=== PATIENT | female | born 1935 ===

== ENCOUNTER 2016-08-03 10:56 | Emergency (ER) | payer MEDICARE, MEDICAID ==
[2016-08-03 10:59] VITALS: BP 145/77; PULSE 92; RESP 20; TEMP 98; O2SAT 96
[2016-08-03 11:01] VITALS: BMI 21.7
--- NOTE | 2016-08-03 11:56 | ED PDOC ---
HPI: Back Time Seen by Provider: 08/03/16 11:09 Chief Complaint (Nursing): Hip Pain Chief Complaint (Provider): Hip Pain History Per: Patient History/Exam Limitations: no limitations Onset/Duration Of Symptoms: Days Current Symptoms Are (Timing): Still Present Quality Of Discomfort: "Pain" Severity: Moderate Previous Symptoms: Back Pain Associated Symptoms: None Additional Complaint(s): Patient is a 81 year old female with a history of herniated lumbar disc, presents to ED accompanied by family for evaluation of right lower back and buttock pain. As per family patient takes Tramadol, Motrin, Naproxen and Oxycodone at home all with no relief, last dose of pain medication was last night, Motrin 6oomg PO no medication today. Patient notes that her only pain relief is from injections. Denies recent injury, chest pain, SOB or neck pain. Past Medical History Reviewed: Historical Data, Nursing Documentation, Vital Signs Vital Signs: Last Vital Signs Temp 98.0 F 08/03/16 10:58 Pulse 92 H 08/03/16 10:58 Resp 20 08/03/16 10:58 BP 145/77 08/03/16 10:58 Pulse Ox 96 08/03/16 10:58 - Medical History PMH: Anxiety, Arthritis, Gastritis, GERD, HTN, Hypercholesterolemia, Pneumonia Denies: Chronic Kidney Disease - Surgical History Surgical History: Cholecystectomy - Family History Family History: States: No Known Family Hx - Home Medications Home Medications: Ambulatory Orders Medication Instructions Recorded RX: Acetaminophen 650 mg PO Q6 PRN #0 tab 03/07/14 RX: Albuterol HFA [Ventolin HFA 90 2 puff INH RQ6 PRN #0 puff 03/07/14 mcg/actuation (8 g)] RX: Albuterol [Proventil] 2 puff IH Q4H PRN #0 ml 03/07/14 RX: Amitriptyline HCl 50 mg PO BID #0 tab 03/07/14 RX: Aspirin [Aspirin EC] 81 mg PO DAILY #0 ect 03/07/14 RX: Atorvastatin [Lipitor] 10 mg PO HS #0 tab 03/07/14 RX: Donepezil Hydrochloride 5 mg PO HS #0 tab 03/07/14 RX: Escitalopram [Lexapro] 20 mg PO HS #0 tab 03/07/14 RX: Fenofibrate Nanocrystallized 145 mg PO HS #0 tab 03/07/14 [Fenofibrate] RX: Montelukast [Singulair] 10 mg PO DAILY #0 tab 03/07/14 RX: Pantoprazole [Protonix EC Tab] 40 mg PO DAILY #0 ect 03/07/14 RX: Quetiapine Fumarate 100 mg PO BID #0 tab 03/07/14 RX: clonazePAM [Klonopin] 1 mg PO TID #0 tab 03/07/14 Fluconazole [Diflucan] 100 mg PO DAILY #14 tab 03/11/14 Nystatin [Nystatin Oral Susp] 1 bottle PO Q6 #0 udc 03/11/14 RX: Cyanocobalamin 1,000 mcg PO DAILY #0 tab 03/11/14 RX: Nicotine [Nicotine Patch] 7 mg TD DAILY #0 ml 03/11/14 RX: Celecoxib [celeBREX] 200 mg PO DAILY PRN #20 cap 08/03/16 RX: traMADol [Ultram] 50 mg PO QID PRN #10 tab 08/03/16 - Allergies Allergies/Adverse Reactions: Allergies Allergy/AdvReac Type Severity Reaction Status Date / Time No Known Allergies Allergy Verified 08/03/16 11:13 Review of Systems ROS Statement: Except As Marked, All Systems Reviewed And Found Negative Constitutional: Negative for: Fever, Weakness Eyes: Negative for: Vision Change Cardiovascular: Negative for: Chest Pain, Palpitations Respiratory: Negative for: Shortness of Breath Gastrointestinal: Negative for: Nausea, Vomiting, Abdominal Pain Musculoskeletal: Positive for: Back Pain. Negative for: Neck Pain Neurological: Negative for: Weakness, Numbness Physical Exam - Reviewed Nursing Documentation Reviewed: Yes Vital Signs Reviewed: Yes - Physical Exam Appears: Positive for: Non-toxic, Uncomfortable Skin: Positive for: Normal Color, Warm Eye Exam: Positive for: Normal appearance Neck: Positive for: Normal, Painless ROM Cardiovascular/Chest: Positive for: Regular Rate, Rhythm. Negative for: Murmur Respiratory: Positive for: Normal Breath Sounds. Negative for: Respiratory Distress Gastrointestinal/Abdominal: Positive for: Normal Exam. Negative for: Tenderness Back: Positive for: Normal Inspection, Other (Right buttock tenderness (-) eccymosis (-) deformity ). Negative for: Vertebral Tenderness Extremity: Positive for: Normal ROM. Negative for: Pedal Edema Neurologic/Psych: Positive for: Alert, Oriented. Negative for: Motor/Sensory Deficits - Laboratory Results Result Diagrams: 08/03/16 11:44 08/03/16 11:44 - ECG O2 Sat by Pulse Oximetry: 96 (RA) Pulse Ox Interpretation: Normal - Progress Re-evaluation Time: 14:15 Condition: Improved Medical Decision Making Medical Decision Making: Time: 1145 Initial impression: Acute on chronic back pain Initial plan: -- BMP -- Urine dip -- CBC -- Toradol and Tylenol Scribe Attestation: Documented by Rachel Koo acting as a scribe for Allyson Harrison MD MD Scribe Attestation: All medical record entries made by the Scribe were at my direction and personally dictated by me. I have reviewed the chart and agree that the record accurately reflects my personal performance of the history, physical exam, medical decision making, and the department course for this patient. I have also personally directed, reviewed, and agree with the discharge instructions and disposition. Disposition - Clinical Impression Clinical Impression: Back pain, UTI (urinary tract infection) - Patient ED Disposition Is Patient to be Admitted: No Doctor Will See Patient In The: Office Counseled Patient/Family Regarding: Diagnosis, Need For Followup - Disposition Referrals: Jan Flores MD [Family Provider] - Disposition: Routine/Home Disposition Time: 14:30 Condition: IMPROVED Prescriptions: RX: Celecoxib [celeBREX] 200 mg PO DAILY PRN #20 cap PRN Reason: Pain RX: traMADol [Ultram] 50 mg PO QID PRN #10 tab PRN Reason: Pain, Moderate (4-7) Instructions: Urinary Tract Infection in Women (ED), Chronic Back Pain (ED) Forms: [employer] ([place]) - POA Present On Arrival: None
[2016-08-03 12:13] LABS: BASO % 0.5 % (0.0-2.0); EOS # 0.1 K/uL (0.0-0.7); EOS % 1.4 % (0.0-4.0); LYMPH # 2.7 K/uL (1.0-4.3); LYMPH % 33.1 % (20.0-40.0); MEAN CELL VOLUME 97.2 fl (81.0-99.0); MEAN PLATELET VOLUME 8.7 fl (7.2-11.7); MONO # 0.4 K/uL (0.0-0.8); MONO % 5.1 % (0.0-10.0); NEUT # 4.8 K/uL (1.8-7.0); NEUT % 59.9 % (50.0-75.0); RED CELL DISTRIBUTION WIDTH 14.7 % (11.5-14.5)
[2016-08-03 12:22] LABS: BLOOD UREA NITROGEN 22 mg/dl (7-17); CALCIUM 9.5 mg/dL (8.4-10.2); CARBON DIOXIDE 26 mmol/L (22-30); CHLORIDE 106 mmol/L (98-107); GFR AFRICAN-AMERICAN > 60; GLUCOSE,RANDOM 122 mg/dL (65-105); POTASSIUM 3.8 MMOL/L (3.6-5.0); SODIUM 141 mmol/l (132-148)
[2016-08-03 13:05] LABS: URINE BLOOD TRACE (NEGATIVE)
[2016-08-03 13:06] LABS: PH,URINE 5.5 (5.0-8.0); URINE COLOR YELLOW/V (YELLOW); URINE LEUKOCYTE ESTERASE MODERATE Leu/uL (Negative)
[2016-08-03 13:07] LABS: URINE BILIRUBIN NEGATIVE/V (NEGATIVE); URINE GLUCOSE (UA) NEGATIVE/V mg/dL (Normal); URINE KETONE TRACE/V mg/dL (NEGATIVE)
[2016-08-03 13:08] LABS: URINE PROTEIN 100/V mg/dL (NEGATIVE); URINE UROBILINOGEN 0.2/V mg/dL (0.2-1.0)
[2016-08-03 13:11] LABS: RBC URINE 8 /hpf (0-3); RENAL EPITHELIAL 2 /hpf (0-3); TRANSITIONAL EPITHIAL 1 /hpf (0-3); URINE BACTERIA RARE (<OCC); WBC CLUMPS FEW /hpf; WBC URINE 281 /hpf (0-5)
== END 2016-08-03 14:55 | disposition home or self-care (01) ==
LOC: H.ER 10:56
DX: N39.0 Urinary tract infection, site not specified (principal); M54.5 Low back pain
CPT/HCPCS: 80048; 81003; 85025; 87086; 87181; 96374; 99284; J1885

== ENCOUNTER 2016-09-03 09:59 | Day surgery (SDC) | payer MEDICARE, MEDICAID ==
[2016-09-03 10:12] VITALS: BMI 21.9
[2016-09-03 10:38] LABS: MEAN CORPUSCULAR HEMOGLOBIN 31.7 pg (27.0-31.0); RBC 4.11 Mil/uL (3.80-5.20); RED CELL DISTRIBUTION WIDTH 14.7 % (11.5-14.5); WHITE BLOOD COUNT 10.6 K/uL (4.8-10.8)
[2016-09-03] MEDS ORDERED: Lactated Ringer's 1,000 ML IV ONE (10:44)
[2016-09-03 10:58] LABS: INR 1.1 (0.9-1.2); PARTIAL THROMBOPLASTIN TIME 28.6 Seconds (25.6-37.1); PROTHROMBIN TIME 11.9 Seconds (9.8-13.1)
[2016-09-03] MEDS ORDERED: Lidocaine 1% Inj (20ml) ONE (13:15)
[2016-09-03] MEDS ORDERED: Midazolam 2 MG/2 ML VIAL ONE (13:21)
[2016-09-03] MEDS ORDERED: Etomidate 20 mg/10ml Inj IV ONE (13:34)
--- NOTE | 2016-09-03 13:44 | CP.SDSHP ---
Same Day Surgery H & P - History Proposed Procedure: CT guided right iliac mass biopsy Pre-Op Diagnosis: Right iliac mass - Allergies Allergies: Allergies No Known Allergies Allergy (Verified 08/03/16 11:13) - Physical Exam Vital Signs: Vital Signs 09/03/16 09/03/16 10:34 10:37 Temperature 99.7 F H Pulse Rate 90 90 Respiratory 18 Rate Blood Pressure 133/70 O2 Sat by Pulse 95 Oximetry Mental Status: Alert & Oriented x3 Neuro: WNL - Impression Impression: PT with expansile right iliac mass referred for image guided biopsy. Plan CT guided core biopsy of right iliac mass. Pt. Evaluated Today:Candidate for Anesthesia & Procedure: Yes (ASA 2 Malampati 3) Short Stay Discharge - Short Stay Discharge Admitting Diagnosis/Reason for Visit: SOFT TISSUE MASS Referrals: Jan Flores MD [Primary Care Provider] -
[2016-09-03] MEDS ORDERED: Sodium Chloride 0.9% 250 ML IV ONE (13:45)
--- NOTE | 2016-09-03 13:56 | PCM.SURG1 ---
Surgeon's Initial Post Op Note - Surgeon's Notes Surgeon: Gregorio Parks MD Cementer Hand: NONE Type of Anesthesia: IV Sedation Pre-Operative Diagnosis: Expansile right iliac bone mass. Operative Findings: Expansile right iliac bone lesions. Post-Operative Diagnosis: Expansile right iliac bone mass. Operation Performed: CT guided right iliac mass biopsy. Three 18 gauge core biopsy specimen obtained. Specimen/Specimens Removed: 18 gauge core Estimated Blood Loss: EBL {In ML}: 2 Blood Products Given: N/A Drains Used: No Drains Post-Op Condition: Good Date of Surgery/Procedure: 09/03/16 Time of Surgery/Procedure: 13:45
[2016-09-03 14:54] VITALS: O2SAT 97
[2016-09-03 14:56] VITALS: RESP 18; TEMP 98.6
[2016-09-03 16:14] VITALS: BP 134/53; PULSE 74
--- NOTE | 2016-09-09 11:13 | CT ---
PROCEDURE: < Date of procedure: 09/03/2016 Procedure: CT-guided biopsy of right iliac bone mass, CPT 52886 CT guidance for biopsy, [address] Medications: The patient sedated by the anesthesiologist with IV sedation, 2 percent lidocaine HISTORY: Permeative right iliac bone lesion with cortical breakthrough TECHNIQUE: Following informed consent and procedure time-out, patient placed prone on the CT table and noncontrast scan confirmed the presence of a right iliac bone lesion which is permeative in appearance and has cortical disruption. Using coaxial technique, 17 gauge needle was advanced under CT guidance towards the cortex. Two 18 gauge coaxial specimen was removed with a drill bit. A post biopsy CT scan showed no hematoma. IMPRESSION: CT-guided core biopsy of right iliac bone lesion.
== END 2016-09-03 16:00 | disposition home or self-care (01) ==
LOC: H.OPSURG 09:59
PROVIDERS: ATTEND Family Medicine
DX: C41.4 Malignant neoplasm of pelvic bones, sacrum and coccyx (principal)
CPT/HCPCS: 20220; 36415; 82948; 85027; 85610; 85730; 88307; J2250; J2270; J3010; J7040; J7120

== ENCOUNTER 2016-12-01 12:46 | Observation (INO) | payer MEDICARE, MEDICAID ==
[2016-12-01 12:46] VITALS: BMI 21.9
[2016-12-01] MEDS ORDERED: Sodium Chloride 0.9% 1,000 ML IV STA (13:04)
--- NOTE | 2016-12-01 13:11 | ED PDOC ---
HPI: Abdomen Time Seen by Provider: 12/01/16 12:55 Chief Complaint (Nursing): GI Problem Chief Complaint (Provider): Nausea, Vomiting and Diarrhea History Per: Patient History/Exam Limitations: no limitations Onset/Duration Of Symptoms: Hrs Outside of [place] travel?: No Current Symptoms Are (Timing): Still Present Associated Symptoms: Nausea, Vomiting, Diarrhea Additional Complaint(s): Emilia Daily, a 81 year old female, with a past medical history of cervical cancer, is brought into the ED by EMS for nausea, vomiting an diarrhea that started this morning. Patient states that she is status post chemotherapy and her last dosage was on . Patient also complaining of some abdominal pain. Abnormal Vaginal Bleeding: No Past Medical History Vital Signs: Last Vital Signs Temp 98.3 F 12/01/16 14:50 Pulse 100 H 12/01/16 14:50 Resp 19 12/01/16 14:50 BP 125/55 L 12/01/16 14:50 Pulse Ox 96 12/01/16 14:50 - Medical History PMH: Anxiety, Arthritis, Depression, Gastritis, GERD, HTN, Hypercholesterolemia , Pneumonia Denies: Chronic Kidney Disease - Surgical History Surgical History: Cholecystectomy - Family History Family History: States: Unknown Family Hx - Social History Current smoker - smoking cessation education provided: Yes (Heavy Smoker > 10 Cigarettes Daily) Ex-Smoker (has not smoked in the last 12 months): Yes Alcohol: None Drugs: Denies - Home Medications Home Medications: Ambulatory Orders Medication Instructions Recorded Acetaminophen 650 mg PO Q6 PRN #0 tab 03/07/14 Albuterol [Proventil] 2 puff IH Q4H PRN #0 ml 03/07/14 Aspirin [Aspirin EC] 81 mg PO DAILY #0 ect 03/07/14 Atorvastatin [Lipitor] 10 mg PO HS #0 tab 03/07/14 Escitalopram [Lexapro] 20 mg PO HS #0 tab 03/07/14 Fenofibrate Nanocrystallized 145 mg PO HS #0 tab 03/07/14 [Fenofibrate] Montelukast [Singulair] 10 mg PO DAILY #0 tab 03/07/14 clonazePAM [Klonopin] 1 mg PO TID #0 tab 03/07/14 Celecoxib [celeBREX] 200 mg PO DAILY PRN #20 cap 08/03/16 traMADol [Ultram] 50 mg PO QID PRN #10 tab 08/03/16 Cholecalciferol (Vitamin D3) 5,000 units PO DAILY 09/03/16 [Vitamin D3] Gabapentin [Neurontin] 400 mg PO DAILY 09/03/16 Ibuprofen [Motrin Tab] 600 mg PO DAILY 09/03/16 Meloxicam [Mobic] 15 mg PO DAILY 09/03/16 Metformin HCl [Fortamet] 500 mg PO DAILY 09/03/16 Mirabegron [Myrbetriq] 25 mg PO DAILY 09/03/16 Naproxen Sodium [Naproxen Sodium 550 mg PO DAILY 09/03/16 Ds] Omeprazole [Omeprazole] 40 mg PO DAILY 09/03/16 Quetiapine Fumarate 100 mg PO DAILY 09/03/16 Tizanidine HCl [Tizanidine HCl] 4 mg PO DAILY 09/03/16 - Allergies Allergies/Adverse Reactions: Allergies Allergy/AdvReac Type Severity Reaction Status Date / Time No Known Allergies Allergy Verified 08/03/16 11:13 Review of Systems ROS Statement: Except As Marked, All Systems Reviewed And Found Negative Constitutional: Negative for: Fever Gastrointestinal: Positive for: Nausea, Vomiting, Abdominal Pain, Diarrhea Physical Exam - Reviewed Nursing Documentation Reviewed: Yes Vital Signs Reviewed: Yes - Physical Exam Appears: Positive for: Non-toxic, No Acute Distress Head Exam: Positive for: ATRAUMATIC, NORMAL INSPECTION, NORMOCEPHALIC Skin: Positive for: Normal Color, Warm, Dry. Negative for: Rash Eye Exam: Positive for: Normal appearance, EOMI, PERRL. Negative for: Nystagmus ENT: Negative for: Normal ENT Inspection (Dry mucous membranes) Neck: Positive for: Normal, Painless ROM, Supple Cardiovascular/Chest: Positive for: Regular Rate, Rhythm, Chest Non Tender. Negative for: Tachycardia Respiratory: Positive for: Normal Breath Sounds. Negative for: Wheezing, Respiratory Distress Gastrointestinal/Abdominal: Positive for: Normal Exam, Bowel Sounds, Soft. Negative for: Tenderness, Guarding, Rebound Back: Positive for: Normal Inspection. Negative for: L CVA Tenderness, R CVA Tenderness Extremity: Positive for: Normal ROM. Negative for: Tenderness, Pedal Edema, Deformity, Swelling Neurologic/Psych: Positive for: Alert, Oriented. Negative for: Gait - Laboratory Results Result Diagrams: 12/01/16 13:00 10/08/17 13:00 - ECG O2 Sat by Pulse Oximetry: 99 (RA) Pulse Ox Interpretation: Normal Medical Decision Making Medical Decision Makin Initial impression 81 year old female presenting with nausea and vomiting status post chemotherapy Initial Plan: * EKG * CMP * CBC * Chest x-ray * NS 1000ml IV 200mls/hr * Zofran 4mg IVP * Reevaluation 1312 EKG Performed: * Sinus Tachycardia 106bpm * Non specific ST changes - Scribe Attestation Documented by Pastora Carballo acting as a scribe for Gregorio Romero MD. Provider Attestation All medical record entries made by the Scribe were at my direction and personally dictated by me. I have reviewed the chart and agree that the record accurately reflects my personal performance of the history, physical exam, medical decision making, and the department course for this patient. I have also personally directed, reviewed, and agree with the discharge instructions and disposition. Disposition - Clinical Impression Clinical Impression: Intractable vomiting, Leukocytosis - Patient ED Disposition Is Patient to be Admitted: Yes - Disposition Disposition Time: 15:06 Condition: FAIR Forms: [facility] ([place]) - Pt Status Changed To: Hospital Disposition Of: Observation - POA Present On Arrival: None
[2016-12-01 13:34] LABS: BASO # 0.2 K/uL (0.0-0.2); BASO % 0.6 % (0.0-2.0); HEMATOCRIT 25.6 % (34.0-47.0); LYMPH # 0.9 K/uL (1.0-4.3); LYMPH % 2.2 % (20.0-40.0); MEAN CORPUSCULAR HEMOGLOBIN 30.9 pg (27.0-31.0); MEAN CORPUSCULAR HGB CONC 32.6 g/dL (33.0-37.0); MEAN PLATELET VOLUME 8.8 fl (7.2-11.7); MONO # 0.2 K/uL (0.0-0.8); MONO % 0.4 % (0.0-10.0); NEUT # 37.8 K/uL (1.8-7.0); NEUT % 96.8 % (50.0-75.0); NRBC % 0.1 % (0.0-0.0); PLATELET COUNT 176 K/uL (130-400); RED CELL DISTRIBUTION WIDTH 17.9 % (11.5-14.5)
[2016-12-01 13:52] LABS: ALKALINE PHOSPHATASE 104 U/L (38-126); ALT/SGPT 50 U/L (9-52); AST/SGOT 101 U/L (14-36); BILIRUBIN,TOTAL 0.5 mg/dl (0.2-1.3); BLOOD UREA NITROGEN 9 mg/dl (7-17); CALCIUM 7.8 mg/dL (8.4-10.2); CARBON DIOXIDE 26 mmol/L (22-30); CHLORIDE 99 mmol/L (98-107); GFR AFRICAN-AMERICAN > 60; GLUCOSE,RANDOM 78 mg/dL (65-105); POTASSIUM 3.3 MMOL/L (3.6-5.0); SODIUM 133 mmol/l (132-148); TOTAL PROTEIN 5.1 G/DL (6.3-8.2)
[2016-12-01] MEDS ORDERED: Potassium Chloride 20 mEq ER Tab PO ONE ×2 (13:56→14:25)
--- NOTE | 2016-12-01 14:07 | RAD ---
HISTORY: cough COMPARISON: Chest x-ray performed 09/12/14 TECHNIQUE: Chest, one view. FINDINGS: Examination limited by habitus and hypoinflation. LUNGS: No focal consolidation. Please note that chest x-ray has limited sensitivity for the detection of pulmonary masses. PLEURA: No significant pleural effusion identified. No definite pneumothorax . CARDIOVASCULAR: Partially obscured. Heart size appears within normal limits. Atherosclerotic calcifications of the aortic knob. OSSEOUS STRUCTURES: Postsurgical changes, left humeral head. VISUALIZED UPPER ABDOMEN: Unremarkable. OTHER FINDINGS: None. IMPRESSION: No focal consolidation, significant pleural effusion, or definite pneumothorax identified.
[2016-12-01 15:12] LABS: BASOPHIL 1 % (0-2); MYELOCYTE 2 % (0-0); NEUTROPHIL 90 % (42-75); TOTAL CELLS COUNTED 100
[2016-12-01 15:13] LABS: GIANT PLATELETS PRESENT; STOMATOCYTES SLIGHT
[2016-12-01] MEDS ORDERED: Albuterol HFA 90 mcg/actuation (8 g) IH PRN (15:49)
--- NOTE | 2016-12-01 17:33 | CP.PCM.HP ---
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 Brennen Ibarra at [facility], with history of 2 days of nausea, nonbilious nonbloody emesis, and ongoing wateray diarrhea for the past two days. The patient's family is at bedside and relate that she has not been acting herself lately and has become more lethargic and weak. 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 Due to the increased lethargy and N/V/D, she came to the ED for further evaluation. Here in the ED, the patient was seen to be tachcycardic and lethargic; although she remained afebrile. WBC was seen to be elevated significantly at 39.0. Her last chemotherapy dosage was last . Given her symptoms, she is to be admitted for control of her symptoms and further workup. Present on Admission - Present on Admission Any Indicators Present on Admission: No Review of Systems - Hematologic/Lymphatic Additional comments: CONSTITUTIONAL: No weight loss, fever, chills, weakness or fatigue. HEENT: Eyes: No diplopia or blurred vision. ENT: No earache, sore throat or runny nose. CARDIOVASCULAR: No pressure, squeezing, strangling, tightness, heaviness or aching about the chest, neck, axilla or epigastrium. RESPIRATORY: No cough, shortness of breath, PND or orthopnea. GASTROINTESTINAL: Positive for N/V/ watery diarrhea GENITOURINARY: No dysuria, frequency or urgency. MUSCULOSKELETAL: + Chronic back pain related to sarcoma, no joint pain or stiffness. SKIN: No change in skin, hair or nails. NEUROLOGIC: No paresthesias, fasciculations, seizures or weakness. PSYCHIATRIC: History of dementia, no history of mood disorder ENDOCRINE: No heat or cold intolerance, polyuria or polydipsia. HEMATOLOGICAL: No easy bruising or bleeding. Past Patient History - Infectious Disease Hx of Infectious Diseases: None - Past Medical History & Family History Past Medical History?: Yes Past Family History: Reviewed and not pertinent - Past Social History Smoking Status: Never Smoked Alcohol: None Drugs: Denies - CARDIAC Hx Hypercholesterolemia: Yes Hx Hypertension: Yes - PULMONARY Hx Pneumonia: Yes - NEUROLOGICAL Hx Neurological Disorder: No - HEENT Hx HEENT Problems: No - RENAL Hx Chronic Kidney Disease: No - ENDOCRINE/METABOLIC Hx Endocrine Disorders: Yes Hx Diabetes Mellitus Type 2: Yes - HEMATOLOGICAL/ONCOLOGICAL Hx Blood Disorders: Yes Hx AIDS: No Hx Blood Transfusions: Yes Hx Chemotherapy: Yes - INTEGUMENTARY Hx Dermatological Problems: No - MUSCULOSKELETAL/RHEUMATOLOGICAL Hx Arthritis: Yes - GASTROINTESTINAL Hx Gastritis: Yes - GENITOURINARY/GYNECOLOGICAL Hx Genitourinary Disorders: Yes Hx Cervical Cancer: Yes - PSYCHIATRIC Hx Anxiety: Yes Hx Depression: Yes - SURGICAL HISTORY Hx Cholecystectomy: Yes - ANESTHESIA Hx Anesthesia: Yes Hx Anesthesia Reactions: No Hx Malignant Hyperthermia: No Meds Allergies/Adverse Reactions: Allergies Allergy/AdvReac Type Severity Reaction Status Date / Time No Known Allergies Allergy Verified 08/03/16 11:13 Physical Exam - Additional Findings Additional findings: GENERAL: The patient is an elderly appearing well-developed, well-nourished female, lethargic, in no apparent distress. HEENT: Head is normocephalic and atraumatic. Extraocular muscles are intact. Pupils are equal, round, and reactive to light and accommodation. Nares appeared normal. Mouth is well hydrated and without lesions. Mucous membranes are moist. NECK: Supple. No carotid bruits. No lymphadenopathy or thyromegaly. LUNGS: Clear to auscultation. HEART: Regular rate and rhythm without murmur. ABDOMEN: Soft, nontender, and nondistended. Positive bowel sounds. No hepatosplenomegaly was noted. EXTREMITIES: Tenderness to palpation of the right flank. Without any cyanosis, clubbing, rash, lesions or edema. NEUROLOGIC: Cranial nerves II through XII are grossly intact. PSYCHOSOCIAL: The patient is in a good mood. No signs of depression SKIN: No ulceration or induration present. Results - Vital Signs Recent Vital Signs: Last Vital Signs Temp 98.3 F 12/01/16 14:50 Pulse 100 H 12/01/16 14:50 Resp 19 12/01/16 14:50 BP 125/55 L 12/01/16 14:50 Pulse Ox 99 12/01/16 15:06 - Labs Result Diagrams: 12/01/16 13:00 12/01/16 13:00 Labs: Laboratory Results - last 24 hr 12/01/16 12/01/16 13:00 13:00 WBC 39.0 H* D RBC 2.69 L Hgb 8.3 L D Hct 25.6 L MCV 95.0 MCH 30.9 MCHC 32.6 L RDW 17.9 H Plt Count 176 D MPV 8.8 Neut % (Auto) 96.8 H Lymph % (Auto) 2.2 L Eddy % (Auto) 0.4 Eos % (Auto) 0.0 Baso % (Auto) 0.6 Neut # 37.8 H Lymph # 0.9 L Eddy # 0.2 Eos # 0.0 Baso # 0.2 Neutrophils % (Manual) 90 H Band Neutrophils % 1 Lymphocytes % (Manual) 4 L Monocytes % (Manual) 2 Basophils % (Manual) 1 Myelocytes % 2 H Toxic Granulation Present Platelet Estimate Normal Giant Platelets Present Hypochromasia (manual) Moderate Poikilocytosis (manual Moderate Anisocytosis (manual) Moderate Stomatocytes Slight Schistocytes Slight Sodium 133 Potassium 3.3 L Chloride 99 Carbon Dioxide 26 Anion Gap 11 BUN 9 Creatinine 0.6 L Est GFR ( Amer) > 60 Est GFR (Non-Af Amer) > 60 Random Glucose 78 Calcium 7.8 L Total Bilirubin 0.5 AST 101 H ALT 50 Alkaline Phosphatase 104 Total Protein 5.1 L Albumin 2.5 L D Globulin 2.6 Albumin/Globulin Ratio 1.0 Assessment & Plan - Assessment and Plan (Free Text) Plan: ASSESSMENT - Symptoms of chemotherapy induced vomiting/diarrhea vs infectious gastroenteritis (less likely), resulting in hypovolemia, causing borderline tachycardia - Leukocytosis, likely from leukomoid reaction from chemotherapy, vs due to infectious process - Hypokalemia from GI losses - Known history of sarcoma, with iliac bony mass causing right lower extremity pain PLAN - Tele/obs - Continue NS at 200 cc/hour for now for rehydration, will reduce to 150 cc/ hour overnight - Heart healthy diet - Trend CBC, repeat in AM - Replenish K with PO potassium as nausea has resolved - C. diff toxin A&B study pending given high WBC count and diarrhea, although I expect it to be negative - Zofran to treat N/V - Start Loperamide of C diff negative - Estimated LOS < 2 midnights
[2016-12-02] MEDS ORDERED: Dextrose 50% SYRINGE Inj (50 ml) IVP ONE (01:27)
[2016-12-02] MEDS ORDERED: Sodium Chloride 0.9% 1,000 ML IV SCH (02:15)
[2016-12-02 06:16] LABS: BASO # 0.1 K/uL (0.0-0.2); BASO % 0.3 % (0.0-2.0); BLOOD UREA NITROGEN 6 mg/dl (7-17); CALCIUM 7.5 mg/dL (8.4-10.2); CARBON DIOXIDE 23 mmol/L (22-30); CHLORIDE 102 mmol/L (98-107); EOS # 0.3 K/uL (0.0-0.7); EOS % 0.9 % (0.0-4.0); GFR AFRICAN-AMERICAN > 60; GLUCOSE,RANDOM 62 mg/dL (65-105); HEMATOCRIT 22.6 % (34.0-47.0); LYMPH # 0.8 K/uL (1.0-4.3); LYMPH % 2.4 % (20.0-40.0); MEAN CELL VOLUME 96.9 fl (81.0-99.0); MEAN CORPUSCULAR HEMOGLOBIN 29.8 pg (27.0-31.0); MEAN CORPUSCULAR HGB CONC 30.8 g/dL (33.0-37.0); MEAN PLATELET VOLUME 8.8 fl (7.2-11.7); MONO # 0.3 K/uL (0.0-0.8); MONO % 0.9 % (0.0-10.0); NEUT # 33.3 K/uL (1.8-7.0); NEUT % 95.5 % (50.0-75.0); PLATELET COUNT 130 K/uL (130-400); POTASSIUM 3.1 MMOL/L (3.6-5.0); RED CELL DISTRIBUTION WIDTH 18.4 % (11.5-14.5); SODIUM 136 mmol/l (132-148); WHITE BLOOD COUNT 34.9 K/uL (4.8-10.8)
[2016-12-02] MEDS ORDERED: Dextrose 50% SYRINGE Inj (50 ml) IVP STA (06:52)
[2016-12-02] MEDS: Insulin Regular 100 units/ml SC SCH ×3 (07:00→16:35)
[2016-12-02] MEDS: Dextrose 5%/0.9% NS 1,000 ML IV SCH ×2 (08:36→13:09)
[2016-12-02] MEDS ORDERED: Lidocaine 2% GEL EXT SCH (09:00)
[2016-12-02] MEDS ORDERED: Naproxen 500 MG TAB PO SCH (09:00)
[2016-12-02] MEDS ORDERED: Enoxaparin 40 mg Syringe SC SCH (09:00)
[2016-12-02] MEDS ORDERED: Potassium Chloride 20 mEq ER Tab PO SCH (09:00)
[2016-12-02] MEDS ORDERED: Pantoprazole 40 mg EC Tab PO SCH (09:00)
--- NOTE | 2016-12-02 10:19 | CARD ---
APPROVED REPORT EKG Measurement Heart [id number] <Conclusion> Sinus tachycardia Low voltage QRS Cannot rule out Inferior infarct, age undetermined Abnormal ECG
[2016-12-02 11:32] LABS: EOSINOPHIL 1 % (0-7); MYELOCYTE 2 % (0-0); NEUTROPHIL 94 % (42-75); TOTAL CELLS COUNTED 100
[2016-12-02] MEDS: Potassium CL 10 MEQ/50 ML 50 ML IVPB SCH ×5 (11:40→19:04)
[2016-12-02 11:41] LABS: PLATELET CLUMPS PRESENT
--- NOTE | 2016-12-02 13:08 | CP.PCM.DIS ---
Provider - Provider Date of Admission: 12/01/16 15:04 Attending physician: Stefan Robert DO Primary care physician: Dr. Flores Time Spent in preparation of Discharge (in minutes): 20 Hospital Course - Lab Results Lab Results: Most Recent Lab Values WBC 34.9 K/uL (4.8-10.8) H 12/02/16 05:30 RBC 2.33 Mil/uL (3.80-5.20) L 12/02/16 05:30 Hgb 7.0 g/dL (12.0-16.0) L 12/02/16 05:30 Hct 22.6 % (34.0-47.0) L 12/02/16 05:30 MCV 96.9 fl (81.0-99.0) 12/02/16 05:30 MCH 29.8 pg (27.0-31.0) 12/02/16 05:30 MCHC 30.8 g/dL (33.0-37.0) L 12/02/16 05:30 RDW 18.4 % (11.5-14.5) H 12/02/16 05:30 Plt Count 130 K/uL (130-400) 12/02/16 05:30 MPV 8.8 fl (7.2-11.7) 12/02/16 05:30 Neut % (Auto) 95.5 % (50.0-75.0) H 12/02/16 05:30 Lymph % (Auto) 2.4 % (20.0-40.0) L 12/02/16 05:30 Dewey % (Auto) 0.9 % (0.0-10.0) 12/02/16 05:30 Eos % (Auto) 0.9 % (0.0-4.0) 12/02/16 05:30 Baso % (Auto) 0.3 % (0.0-2.0) 12/02/16 05:30 Neut # 33.3 K/uL (1.8-7.0) H 12/02/16 05:30 Lymph # 0.8 K/uL (1.0-4.3) L 12/02/16 05:30 Dewey # 0.3 K/uL (0.0-0.8) 12/02/16 05:30 Eos # 0.3 K/uL (0.0-0.7) 12/02/16 05:30 Baso # 0.1 K/uL (0.0-0.2) 12/02/16 05:30 Neutrophils % (Manual) 94 % (42-75) H 12/02/16 05:30 Band Neutrophils % 1 % (0-2) 12/02/16 05:30 Lymphocytes % (Manual) 2 % (20-50) L 12/02/16 05:30 Monocytes % (Manual) 0 % (0-10) 12/02/16 05:30 Eosinophils % (Manual) 1 % (0-7) 12/02/16 05:30 Basophils % (Manual) 1 % (0-2) 12/01/16 13:00 Myelocytes % 2 % (0-0) H 12/02/16 05:30 Toxic Granulation Present 12/02/16 05:30 Platelet Estimate Normal (NORMAL) 12/02/16 05:30 Plt Clumps, EDTA Present 12/02/16 05:30 Giant Platelets Present 12/01/16 13:00 Hypochromasia (manual) Moderate 12/02/16 05:30 Poikilocytosis (manual Moderate 12/01/16 13:00 Anisocytosis (manual) Slight 12/02/16 05:30 Ovalocytes Slight 12/02/16 05:30 Stomatocytes Slight 12/01/16 13:00 Schistocytes Slight 12/01/16 13:00 Sodium 136 mmol/l (132-148) 12/02/16 05:30 Potassium 3.1 MMOL/L (3.6-5.0) L 12/02/16 05:30 Chloride 102 mmol/L (98-107) 12/02/16 05:30 Carbon Dioxide 23 mmol/L (22-30) 12/02/16 05:30 Anion Gap 14 (10-20) 12/02/16 05:30 BUN 6 mg/dl (7-17) L 12/02/16 05:30 Creatinine 0.6 mg/dL (0.7-1.2) L 12/02/16 05:30 Est GFR ( Amer) > 60 12/02/16 05:30 Est GFR (Non-Af Amer) > 60 12/02/16 05:30 POC Glucose (mg/dL) 104 mg/dL (65-110) 12/02/16 10:48 Random Glucose 62 mg/dL (65-105) L 12/02/16 05:30 Calcium 7.5 mg/dL (8.4-10.2) L 12/02/16 05:30 Total Bilirubin 0.5 mg/dl (0.2-1.3) 12/01/16 13:00 AST 101 U/L (14-36) H 12/01/16 13:00 ALT 50 U/L (9-52) 12/01/16 13:00 Alkaline Phosphatase 104 U/L (38-126) 12/01/16 13:00 Total Protein 5.1 G/DL (6.3-8.2) L 12/01/16 13:00 Albumin 2.5 g/dL (3.5-5.0) L D 12/01/16 13:00 Globulin 2.6 gm/dL (2.2-3.9) 12/01/16 13:00 Albumin/Globulin Ratio 1.0 (1.0-2.1) 12/01/16 13:00 C. 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 Brennen Ibarra at [facility], presented with 2 days of nausea, nonbilious nonbloody emesis, and ongoing watery diarrhea . The patient's family related that she has not been acting herself lately and has become more lethargic and weak. 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 Due to the increased lethargy and N/V/D, she came to the ED for further evaluation. Here in the ED, the patient was seen to be tachycardic and lethargic; although she remained afebrile with elevated WBC 39 K.Her last chemo was 4 days ago on .As per she has been on fentanyl patch 100 mcg Q72 hours for pain control and was told by oncologist to remove 25 mcg yesterday due to the lethargy that could have been as result of narcotics . He laboratory work up showed hypokalemia and hypoglycemia patient was placed under observation in Med/surg for dehydration , hypoglycemia and hypokalemia. She was started on IVF with D5 NS and K was replaced with KCl runs.She was given Zofran for nausea control and PPI Her Fentanyl patch reduced to 50 MCG Clinically patient improved, AAOx3, pain is controlled, tolerating PO intake Her CBC this AM showed Hgb 7.0.Transfused 1 unit PRBC Will discharge patient home with follow up with her oncologist Dr. Castano 1. Chemotherapy side effects of nausea, vomiting and diarrhea 2. Dehydration 4. hypokalemia - secondary to diarrhea and GI losses.Received KCl IV. continue daily KCl supplements with 20 MEQ pO 5. Leukocytosis -most likely reactive . No signs of infection . probably leukomoid reaction due to granix injections. Follow up with oncologist 6. 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 continue pain management with lidocaine jell, Fentanyl patch and gabapentin. Decreased Fentanyl patch to 50 Mcg Q72 hours. Continue Dilaudid PO 7.DM with hypoglycemia--Most likely due to poor PO intake .Hold Metformin until patient has good PO intake 8Anemia of chronic disease -- Hgb 7 today. will give 1 unit PRBC Discharge Exam - Head Exam Head Exam: ATRAUMATIC, NORMAL INSPECTION, NORMOCEPHALIC - Eye Exam Eye Exam: EOMI, PERRL Pupil Exam: NORMAL ACCOMODATION - ENT Exam ENT Exam: Mucous Membranes Moist, Normal Exam - Neck Exam Neck exam: Full Rom, Normal Inspection - Respiratory Exam Respiratory Exam: NORMAL BREATHING PATTERN, UNREMARKABLE. absent: Respiratory Distress - Cardiovascular Exam Cardiovascular Exam: REGULAR RHYTHM, +S1, +S2. absent: JVD - GI/Abdominal Exam GI & Abdominal Exam: Normal Bowel Sounds, Soft. absent: Distended, Guarding, Rebound, Tenderness - Rectal Exam Rectal Exam: Deferred - Extremities Exam Extremities exam: normal capillary refill, normal inspection, pedal pulses present - Back Exam Back exam: NORMAL INSPECTION - Neurological Exam Neurological exam: Alert, CN II-XII Intact, Oriented x3, Reflexes Normal - Psychiatric Exam Psychiatric exam: Normal Affect, Normal Mood - Skin Skin Exam: Dry, Intact, Pallor, Warm Discharge Plan - Follow Up Plan Condition: IMPROVED Disposition: HOME/ ROUTINE Patient education suggested?: Yes Instructions: Blood Transfusion (DC), Anemia (DC), Chemo Induced Nausea and Vomiting (DC) Additional Instructions: hacer dianne con hernandez oncologo y hernandez doctor primario. Referrals: Jan Flores MD [Family Provider] -
[2016-12-02 15:50] VITALS: BP 116/59; PULSE 93; RESP 18; TEMP 97.9; O2SAT 99
== END 2016-12-02 20:30 | disposition home or self-care (01) ==
LOC: H.ER 12:46 → H.ERHOLD 15:04 → UNDODISOB 22:04 → H.MEDSURG1 22:04
PROVIDERS: ADMIT Internal Medicine; ATTEND Internal Medicine
DX: R11.2 Nausea with vomiting, unspecified (principal); T45.1X5A Adverse effect of antineoplastic and immunosuppressive drugs, initial encounter; K52.1 Toxic gastroenteritis and colitis; E86.0 Dehydration; E87.6 Hypokalemia; D63.8 Anemia in other chronic diseases classified elsewhere; D72.829 Elevated white blood cell count, unspecified; E11.649 Type 2 diabetes mellitus with hypoglycemia without coma; E78.00 Pure hypercholesterolemia, unspecified; F17.210 Nicotine dependence, cigarettes, uncomplicated; E86.1 Hypovolemia; K21.9 Gastro-esophageal reflux disease without esophagitis; K29.70 Gastritis, unspecified, without bleeding; F32.9 Major depressive disorder, single episode, unspecified; F41.9 Anxiety disorder, unspecified; C79.51 Secondary malignant neoplasm of bone; Z85.831 Personal history of malignant neoplasm of soft tissue; G89.3 Neoplasm related pain (acute) (chronic)
CPT/HCPCS: 36415; 36430; 71010; 80048; 80053; 82948; 85025; 86850; 86900; 86920; 87230; 93005; 96374; 99285; G0378; J1650; J2270; J2405; J3480; J7040; J7042; J8540; P9051